=== PATIENT | male | born 1980 | race African-American/Black ===

== ENCOUNTER 2022-09-11 08:49 | Emergency (ER) | payer OTHER ==
[~2022-09-11] VITALS: Ht 167.6 cm; Wt 59.0 kg
[2022-09-11 08:53] VITALS: BP 122/80
[2022-09-11] MEDS ORDERED: NAPR-1176 PO (09:50)
== END 2022-09-11 10:06 | disposition home or self-care (01) ==
LOC: ER 08:49
DX: S39.012A Strain of muscle, fascia and tendon of lower back, initial encounter (principal); S20.211A Contusion of right front wall of thorax, initial encounter; W18.30XA Fall on same level, unspecified, initial encounter; Y93.9 Activity, unspecified; Y92.89 Other specified places as the place of occurrence of the external cause
CPT/HCPCS: 99282